=== PATIENT | female | born 1990 | race Caucasian/White ===

== ENCOUNTER → 2024-03-28 10:52 | Outpatient (REF) | payer BC, SELFPAY | LOC: PNTC 10:52 | PROVIDERS: ATTENDING PHYSICIAN Obstetrics & Gynecology | DX: Z34.82 Encounter for supervision of other normal pregnancy, second trimester (principal); O35.5XX0 Maternal care for (suspected) damage to fetus by drugs, not applicable or unspecified | CPT/HCPCS: 76805 ==

== ENCOUNTER 2024-08-25 16:59 | Observation (INO) | payer BC, SELFPAY ==
[2024-08-25 17:35] VITALS: BMI 32.2
[2024-08-25 17:36] LABS: % Basophils 0.6 % (0-2); % Eosinophils 1.2 % (0-6); % Immature Granulocytes 2.8 % (0-0.5); % Lymphocytes 20.9 % (20.5-51.1); % Monocytes 9.2 % (1.7-9.3); % Neutrophils 65.3 % (42.2-75.2); Absolute Basophils 0.1 10^3/uL (0-0.2); Absolute Eosinophils 0.2 10^3/uL (0-0.7); Absolute Immature Granulocytes 0.4 10^3/uL (0-0.05); Absolute Lymphocytes 2.7 10^3/uL (1.2-3.4); Absolute Monocytes 1.2 10^3/uL (0.1-0.6); Absolute Neutrophils 8.3 10^3/uL (1.4-6.5); Hematocrit 34.2 % (37.0-47.0); Hemoglobin 11.8 g/dL (12.0-16.0); Mean Corp Hgb Conc. 34.5 g/dL (33.0-37.0); Nucleated Red Blood Cells % 0 %; Platelet Count 201 10^3/uL (130-400); Red Blood Cell Count 3.93 10^6/uL (4.20-5.40); Red Cell Dist. Width 13.2 % (11.5-14.5); White Blood Cell Count 12.7 10^3/uL (4.8-10.8)
[2024-08-25 17:41] VITALS: BMI 32.2
[2024-08-25 17:44] VITALS: BP 112/67
[2024-08-25 17:51] LABS: ALT (SGPT) 18 U/L (0-35); AST (SGOT) 25 U/L (14-36); Albumin 3.5 g/dl (3.5-5.0); Alkaline Phosphatase 185 U/L (38-126); Blood Urea Nitrogen 7 mg/dl (7-17); Calcium 8.9 mg/dl (8.4-10.2); Carbon Dioxide 21 mmol/L (22-30); Chloride 103 mmol/L (98-107); Estimated Creatinine Clearance > 125 ml/min; Glucose 71 mg/dl (70-99); Potassium 4.4 mmol/L (3.5-5.1); Sodium 133 mmol/L (135-145); Total Bilirubin 0.6 mg/dl (0.2-1.3); Total Protein 6.4 g/dl (6.3-8.2); eGFR > 60.00
[2024-08-25 18:42] LABS: Urine Protein 16 mg/dl
== END 2024-08-25 18:15 | disposition home or self-care (01) ==
LOC: LDRP 16:59
PROVIDERS: ADMITTING PHYSICIAN Obstetrics & Gynecology; FAMILY PHYSICIAN Student in an Organized Health Care Education/Training Program
DX: O13.3 Gestational [pregnancy-induced] hypertension without significant proteinuria, third trimester (principal); Z3A.38 38 weeks gestation of pregnancy; R51.9 Headache, unspecified
CPT/HCPCS: 36415; 80053; 82570; 84156; 85025; 86850; 86900; 86901; G0378

== ENCOUNTER 2024-08-30 11:00 | Inpatient (IN) | payer BC, SELFPAY ==
[2024-08-30 11:06] VITALS: BP 122/78; BMI 30.7
[2024-08-30] MEDS: LR 1000 IV ×2 (11:30→12:19)
[2024-08-30 11:49] LABS: Hematocrit 35.9 % (37.0-47.0); Hemoglobin 12.5 g/dL (12.0-16.0); Mean Corp Hgb Conc. 34.8 g/dL (33.0-37.0); Mean Corpuscular Hgb 30.3 pg (27.0-31.0); Mean Corpuscular Volume 87.1 fL (81.0-99.0); Platelet Count 222 10^3/uL (130-400); Red Blood Cell Count 4.12 10^6/uL (4.20-5.40); Red Cell Dist. Width 13.4 % (11.5-14.5); White Blood Cell Count 14.8 10^3/uL (4.8-10.8)
[2024-08-30 12:08] LABS: ALT (SGPT) 17 U/L (0-35); AST (SGOT) 24 U/L (14-36); Albumin 3.8 g/dl (3.5-5.0); Alkaline Phosphatase 200 U/L (38-126); Blood Urea Nitrogen 5 mg/dl (7-17); Calcium 8.9 mg/dl (8.4-10.2); Carbon Dioxide 19 mmol/L (22-30); Chloride 104 mmol/L (98-107); Estimated Creatinine Clearance > 125 ml/min; Glucose 70 mg/dl (70-99); Potassium 4.1 mmol/L (3.5-5.1); Sodium 134 mmol/L (135-145); Total Bilirubin 0.7 mg/dl (0.2-1.3); Total Protein 6.7 g/dl (6.3-8.2); eGFR > 60.00
[2024-08-30] MEDS: BICITRA 30 ML PO (13:14)
[2024-08-30] MEDS: TYLENOL 1000 MG PO (13:14)
[2024-08-30] MEDS: MOTRIN 600 MG PO (16:11)
[2024-08-30] MEDS: TYLENOL 650 MG PO (18:08)
[2024-08-30] MEDS: TORADOL 15 MG IV (22:28)
[2024-08-30] MEDS: BENADRYL 25 MG PO (22:30)
[2024-08-30] MEDS: ADVAIR HFA 115/21 MCG INHALER 2 PUFF INH (22:48)
[2024-08-31] MEDS: TORADOL 15 MG IV ×3 (04:28→16:57)
[2024-08-31 06:23] LABS: Hemoglobin 11.4 g/dL (12.0-16.0); Mean Corp Hgb Conc. 34.5 g/dL (33.0-37.0); Mean Corpuscular Hgb 30.1 pg (27.0-31.0); Mean Corpuscular Volume 87.1 fL (81.0-99.0); Mean Platelet Volume 10.5 fL (7.4-10.4); Platelet Count 199 10^3/uL (130-400); Red Blood Cell Count 3.79 10^6/uL (4.20-5.40); Red Cell Dist. Width 13.3 % (11.5-14.5); White Blood Cell Count 14.1 10^3/uL (4.8-10.8)
[2024-08-31] MEDS: OSCAL CAL 500 500 MG PO (07:28)
[2024-08-31] MEDS: VITAMIN C 1000 MG PO (07:28)
[2024-08-31] MEDS: PEPCID 10 MG PO (07:29)
[2024-08-31] MEDS: PRENATAL PLUS 1 TABLET PO (07:29)
[2024-08-31] MEDS: VISBIOME 1 CAP PO (07:29)
[2024-08-31] MEDS: ZYRTEC 10 MG PO (07:29)
[2024-08-31] MEDS: ADVAIR HFA 115/21 MCG INHALER 2 PUFF INH ×2 (07:42→19:56)
[2024-09-01] MEDS: TYLENOL 650 MG PO ×4 (00:13→14:31)
[2024-09-01] MEDS: MOTRIN 600 MG PO ×3 (00:14→18:10)
[2024-09-01] MEDS: ADVAIR HFA 115/21 MCG INHALER 2 PUFF INH ×2 (08:20→18:02)
[2024-09-01] MEDS: VITAMIN C 1000 MG PO (09:39)
[2024-09-01] MEDS: VISBIOME 1 CAP PO (09:40)
[2024-09-01] MEDS: ZYRTEC 10 MG PO (09:40)
[2024-09-01] MEDS: PRENATAL PLUS 1 TABLET PO (09:40)
[2024-09-01] MEDS: PEPCID PO (09:40)
[2024-09-01] MEDS: OSCAL CAL 500 500 MG PO (11:21)
[2024-09-01] MEDS: OSCAL CAL 500 PO (12:58)
[2024-09-01 13:48] LABS: Syphilis/T. pallidum Ab Reflex Negative (Negative)
[2024-09-02] MEDS: TYLENOL 650 MG PO ×3 (00:21→12:05)
[2024-09-02] MEDS: MOTRIN 600 MG PO ×2 (00:21→06:28)
[2024-09-02] MEDS: ADVAIR HFA 115/21 MCG INHALER 2 PUFF INH (09:36)
[2024-09-02] MEDS: PEPCID 10 MG PO (10:46)
[2024-09-02] MEDS: ZYRTEC 10 MG PO (10:46)
[2024-09-02] MEDS: VITAMIN C 1000 MG PO (10:46)
[2024-09-02] MEDS: PRENATAL PLUS 1 TABLET PO (10:47)
[2024-09-02] MEDS: SENOKOT-S 1 TABLET PO (10:47)
[2024-09-02] MEDS: OSCAL CAL 500 500 MG PO (10:47)
[2024-09-02] MEDS: VISBIOME 1 CAP PO (10:47)
--- NOTE | 2024-09-02 11:43 | W.DS.TRANS ---
DC Summary - Handle Bender
-
Discharge Instructions:
Discharge Diagnosis/Procedures 39wks; Prior LTCS declined TOLAC/;
Elective repeat LTCS
Diet Regular
Activity No strenuous activity
Driving Restrictions No driving for 2 weeks
Bathing Restrictions OK to Shower
Instructions:
Stand-Alone Forms: [facility]
Changes to Home Medications: No
Discharge Medications:
DC Medications w/original date entered in [facility] ([facility])
albuterol 90 mcg/actuation aerosol inhaler 1 mcg inhalation PRN PRN breathing 01/18/22
ascorbic acid (vitamin C) 1,000 mg tablet (Vitamin C) 1,000 mg PO DAILY Supplement 01/18/22
calcium 600 mg capsule 600 mg PO DAILY Supplement 01/18/22
cetirizine 10 mg tablet (Zyrtec) 10 mg PO DAILY Allergies 01/18/22
fluticasone 250 mcg-salmeterol 50 mcg/dose blistr powdr for inhalation (Advair Diskus) 1 inh inhalation BID Allergies 01/18/22
fluticasone propionate 50 mcg/actuation nasal spray,suspension 2 spray intranasal DAILY Allergies 01/18/22
prenat.vits,yudith,seu-kipm-jlero 1 tab PO DAILY Supplement 01/18/22
Pepcid 10 mg PO DAILY 08/25/24
Probiotic 1 tab PO DAILY 08/25/24
Vitamin D3 1 tab PO DAILY 08/25/24
acetaminophen 325 mg tablet 650 mg (2 x 325 mg) PO Q4HPRN PRN mild pain #1 tab 09/02/24
ibuprofen 600 mg tablet 600 mg PO Q6HPRN PRN cramps #1 tab 09/02/24
Home Medication Changes
Pending Results: No
--- NOTE | 2024-09-02 11:43 | W.DCSUMMARY ---
Discharge Summary
Discharge Data
Date of Admission: 08/30/24
Date of Discharge: 09/02/24
-
Pending Results: No
Hospital Course
Patient is a 33yo who presented to Labor and Delivery on 08/30 for elective repeat low transverse section. She has a history of one prior section and declined a trial of labor after section. The was
uncomplicated. The QBL was 210. She delivered a viable male . On post-operative day one she was meeting all milestones. Her hemoglobin was 11.4 and she had no signs of anemia. On post-operative day two she was doing well with no complaints. On
post-operative day three she was meeting all milestones. She was tolerating a regular diet, voiding spontaneously, passing flatus and ambulating without difficulty. She was discharged home with discharge instructions and return precautions. She was
instructed to follow up in 2 weeks for an incision check.
Discharge Plan
-
Patient Disposition: Home (Routine Discharge)
Discharge Diagnosis/Procedures: 39wks; Prior LTCS declined TOLAC/; Elective repeat LTCS
Condition: Good
Diet: Regular
Activity: No strenuous activity
Driving Restrictions: No driving for 2 weeks
Bathing Restrictions: OK to Shower
Activity Restrictions/Additional Instructions:
Please make appt in office in 2 wks and in 6 wks
Stand Alone Forms: [facility]
Referrals:
Negin Mo, DO [Active] - in two weeks (follow up in 2 wks and 6 wks)
UNKNOWN - PT NOT,INTERVIEWE [Family Provider] -
Prescriptions:
New
acetaminophen 325 mg Tablet
650 mg PO Q4HPRN PRN (Reason: mild pain) Qty: 1 0RF
ibuprofen 600 mg Tablet
600 mg PO Q6HPRN PRN (Reason: cramps) Qty: 1 0RF
Continued
calcium 600 mg Capsule
600 mg PO DAILY
fluticasone propion-salmeterol [Advair Diskus] 250-50 mcg/dose Blister With Device
1 inh INHALATION BID
ascorbic acid (vitamin C) [Vitamin C] 1,000 mg Tablet
1,000 mg PO DAILY
cetirizine [Zyrtec] 10 mg Tablet
10 mg PO DAILY
albuterol 90 mcg/actuation Aerosol
1 mcg INHALATION PRN PRN (Reason: breathing)
fluticasone propionate 50 mcg/actuation [place],Suspension
2 spray INTRANASAL DAILY
prenat.vits,yudith,hqe-kwss-bjghn Tablet
1 tab PO DAILY
Vitamin D3
1 tab PO DAILY
Probiotic tablet
1 tab PO DAILY
Pepcid
10 mg PO DAILY
Discharge Orders:
Discharge Patient (As Directed); Ordered 09/02/24
Ordered By: Maris Saleh
Discharge Date and Time
Print Language: BRUNEIAN
== END 2024-09-02 12:07 | disposition home or self-care (01) | DRG 788 ==
LOC: LDRP 11:00
PROVIDERS: ADMITTING PHYSICIAN Obstetrics & Gynecology
PROC: 10D00Z1 Extraction of Products of Conception, Low, Open Approach (ICD-10-PCS; 2024-08-30)
DX: O34.211 Maternal care for low transverse scar from previous cesarean delivery (principal); Z3A.39 39 weeks gestation of pregnancy; Z37.0 Single live birth; J45.909 Unspecified asthma, uncomplicated; F41.9 Anxiety disorder, unspecified; O99.52 Diseases of the respiratory system complicating childbirth; O99.344 Other mental disorders complicating childbirth; Z80.49 Family history of malignant neoplasm of other genital organs; Z80.0 Family history of malignant neoplasm of digestive organs; Z88.7 Allergy status to serum and vaccine; Z88.8 Allergy status to other drugs, medicaments and biological substances; Z88.1 Allergy status to other antibiotic agents; Z88.0 Allergy status to penicillin; Z91.013 Allergy to seafood
CPT/HCPCS: 80053; 85027; 86780; 86850; 86900; 86901; 94640

== ENCOUNTER 2025-04-03 06:25 | Day surgery (SDC) | payer BC, SELFPAY | END 2025-04-03 09:02 | disposition home or self-care (01) | LOC: GI 06:25 | PROVIDERS: ATTENDING PHYSICIAN Surgery | DX: K63.5 Polyp of colon (principal); K62.5 Hemorrhage of anus and rectum | CPT/HCPCS: 45385; 88305 ==